=== PATIENT | female | born 1970 | race Two or more races ===

== ENCOUNTER 2023-04-02 09:27 | Outpatient (CLI) | payer OTHER | END 2023-04-02 09:39 | disposition home or self-care (01) | LOC: RX STUDY 09:27 | DX: R13.19 Other dysphagia (principal) ==

== ENCOUNTER 2024-11-19 08:29 | Outpatient (CLI) | payer OTHER | END 2024-11-19 08:39 | disposition home or self-care (01) | LOC: MAMO-SONO 08:29 | DX: Z12.31 Encounter for screening mammogram for malignant neoplasm of breast (principal); N93.9 Abnormal uterine and vaginal bleeding, unspecified ==